=== PATIENT | female | born 1990 | race Caucasian/White ===

== ENCOUNTER 2017-09-16 21:36 | Emergency (ER) | payer SELFPAY ==
[2017-09-16 21:57] VITALS: RESP 18
[2017-09-16] MEDS ORDERED: Sodium Chloride 0.9% 1,000 ML IV STA (22:02)
--- NOTE | 2017-09-16 22:38 | ED PDOC ---
HPI: Psych/Substance Abuse Time Seen by Provider: 09/16/17 21:43 Chief Complaint (Nursing): Alcohol Ingestion ED Caveat: Intoxicated History Per: Patient Additional Complaint(s): Pt. brought in by EMS. As per RN who spoke with EMS pt was found sitting down in path station sleeping and had vomit in her hair. Pt. admits to drinking "3 glasses of whiskey." Offers no complaints at this time. Past Medical History Reviewed: Historical Data, Nursing Documentation, Vital Signs Vital Signs: Last Vital Signs Temp 97.1 F L 09/16/17 21:43 Pulse 60 09/16/17 21:43 Resp 18 09/16/17 21:43 BP 108/52 L 09/16/17 21:43 Pulse Ox 100 09/16/17 21:43 - Family History Family History: States: No Known Family Hx - Allergies Allergies/Adverse Reactions: Allergies Allergy/AdvReac Type Severity Reaction Status Date / Time No Known Allergies Allergy Verified 09/16/17 22:01 Review of Systems ROS Statement: Except As Marked, All Systems Reviewed And Found Negative Physical Exam - Physical Exam Appears: Positive for: Well, Non-toxic, No Acute Distress Head Exam: Positive for: ATRAUMATIC, NORMAL INSPECTION, NORMOCEPHALIC Skin: Positive for: Normal Color, Warm. Negative for: Rash Eye Exam: Positive for: EOMI, Normal appearance, PERRL ENT: Positive for: Normal ENT Inspection, TM Is/Are (no hemotympanum b/l) Neck: Positive for: Normal, Painless ROM Cardiovascular/Chest: Positive for: Regular Rate, Rhythm, Chest Non Tender Respiratory: Positive for: CNT, Normal Breath Sounds Gastrointestinal/Abdominal: Positive for: Normal Exam, Bowel Sounds, Soft, Other (no ecchymosis). Negative for: Tenderness Back: Positive for: Normal Inspection. Negative for: L CVA Tenderness, R CVA Tenderness, Vertebral Tenderness Neurologic/Psych: Positive for: Alert, Oriented, Other (dry vomitus in hair, follows verbal commands, AOB, slurred speech). Negative for: Aphasia, Facial Droop - Laboratory Results Result Diagrams: 09/16/17 22:20 09/16/17 22:20 - ECG O2 Sat by Pulse Oximetry: 100 - Radiology X-Ray: Interpreted by Me (CXR) X-Ray Interpretation: No Acute Disease - Progress ED Course And Treament: Labs ordered. Zofran 4mg IV, IV NS bolus ordered. 0156 On re-evaluation, pt. AOx3. Gait steady, unassisted. Pt. reports feeling much better. Disposition - Clinical Impression Clinical Impression: Alcohol intoxication - Patient ED Disposition Is Patient to be Admitted: No - Disposition Referrals: [facility] [Outside] Disposition: Routine/Home Disposition Time: 01:56 Condition: IMPROVED Instructions: Alcohol Use - When Is Drinking a Problem? Forms: [employer] ([employer])
[2017-09-16 22:52] LABS: ALB/GLOB RATIO 1.3 (1.0-2.1); ALBUMIN 4.6 g/dL (3.5-5.0); ALT/SGPT 31 U/L (9-52); AST/SGOT 38 U/L (14-36); BLOOD UREA NITROGEN 13 mg/dl (7-17); CALCIUM 9.5 mg/dL (8.4-10.2); GFR AFRICAN-AMERICAN > 60; GFR NON-AFRICAN AMERICAN > 60
[2017-09-16 23:45] LABS: RBC 7.5 Mil/uL (3.80-5.20); WHITE BLOOD COUNT 7.5 K/uL (4.8-10.8)
[2017-09-16 23:46] LABS: EOS % 1.3 % (0.0-4.0); HEMOGLOBIN 14.8 g/dL (12.0-16.0); MEAN CELL VOLUME 90.5 fl (81.0-99.0); MEAN CORPUSCULAR HEMOGLOBIN 29.9 pg (27.0-31.0); MEAN CORPUSCULAR HGB CONC 33.1 g/dL (33.0-37.0); MEAN PLATELET VOLUME 8.8 fl (7.2-11.7); MONO % 4.8 % (0.0-10.0); NEUT % 68.9 % (50.0-75.0); RED CELL DISTRIBUTION WIDTH 13.6 % (11.5-14.5)
[2017-09-16 23:47] LABS: BASO # 0.1 K/uL (0.0-0.2); EOS # 0.1 K/uL (0.0-0.7); LYMPH # 1.8 K/uL (1.0-4.3); MONO # 0.4 K/uL (0.0-0.8); NEUT # 5.2 K/uL (1.8-7.0)
[2017-09-17 01:51] VITALS: BP 103/73; PULSE 89; TEMP 97.5
[2017-09-17 02:01] VITALS: O2SAT 100
--- NOTE | 2017-09-17 10:53 | RAD ---
HISTORY: vomiting COMPARISON: No prior. FINDINGS: LUNGS: No active pulmonary disease. PLEURA: No significant pleural effusion identified, no pneumothorax apparent. CARDIOVASCULAR: Normal. OSSEOUS STRUCTURES: No significant abnormalities. VISUALIZED UPPER ABDOMEN: Normal. OTHER FINDINGS: None. IMPRESSION: No acute cardiopulmonary disease appreciated.
== END 2017-09-17 02:05 | disposition home or self-care (01) ==
LOC: H.ER 21:36
DX: F10.129 Alcohol abuse with intoxication, unspecified (principal)
CPT/HCPCS: 71045; 80053; 81025; 84703; 85025; 96361; 96374; 99282; G0480; J2405; J7040